=== PATIENT | female | born 1960 | race Caucasian/White ===

== ENCOUNTER 2016-08-10 16:18 | Emergency (ER) | payer MEDICARE, MEDICAID ==
[2016-08-10 16:26] VITALS: TEMP 97.6; BMI 27.6
--- NOTE | 2016-08-10 17:01 | DIRPT ---
CLINICAL DATA: Chest congestion, productive cough, chills and body aches for the past 3 days, history of COPD, current smoker. EXAM: CHEST 2 VIEW COMPARISON: PA and lateral chest x-ray of March 10, 2016 FINDINGS: The lungs remain hyperinflated. There is no focal infiltrate. There is no pleural effusion. The heart and pulmonary vascularity are normal. The mediastinum is normal in width. There is no pleural effusion. The observed bony thorax is unremarkable. IMPRESSION: COPD. There is no pneumonia, CHF, nor other acute cardiopulmonary abnormality. Electronically Signed By: Sammy Shi M.D. On: 08/10/2016 16:58
--- NOTE | 2016-08-10 18:30 | EDPRACDOC ---
- General Information Chief Complaint: Flu-Like Symptoms Stated Complaint: CHEST CONGESTION/ PNA? Time Seen by Provider: 08/10/16 18:19 Information Source: Patient Home Medications: Home Medications Alprazolam 0.5 mg PO TID PRN 07/13/13 Amlodipine [Norvasc] 10 mg PO DAILY 07/13/13 Atenolol [Tenormin] 100 mg PO DAILY 07/13/13 Dexlansoprazole [Dexilant] 60 mg PO DAILY 07/13/13 Fenofibrate,Micronized [Fenofibrate] 200 mg PO DAILY 07/13/13 Fluticasone/Salmeterol [Advair 250-50 Diskus] 1 puff INH BID 07/13/13 Levothyroxine Sodium 50 mcg PO DAILY 07/13/13 Lisinopril 40 mg PO DAILY 07/13/13 Meloxicam 7.5 mg PO DAILY 07/13/13 Perphenazine 4 mg PO BID 07/13/13 Perphenazine 12 mg PO HS 07/13/13 Trazodone HCl 200 mg PO QHS 07/13/13 Venlafaxine HCl ER [Effexor Xr] 150 mg PO DAILY 07/13/13 Rivaroxaban [Xarelto] 20 mg PO DAILY 06/27/14 Cyclobenzaprine HCl [Flexeril] 10 mg PO TID PRN #15 tablet 04/30/16 Montelukast Sodium [Singulair] 10 mg PO DAILY 04/30/16 Nitrofurantoin [Macrobid] 100 mg PO BID #14 cap 04/30/16 Oxycodone HCl/Acetaminophen [Percocet 5-325 mg Tablet] 1 tab PO Q6H PRN #20 tab 04/30/16 Alprazolam 2 mg PO TID #30 tab 05/01/16 Oxycodone HCl [Oxycodone Immediate Release] 10 mg PO Q6H PRN #30 tab 05/01/16 Azithromycin [Zithromax] 250 mg PO DAILY #6 tablet 08/10/16 Prednisone [Deltasone, Orasone] 20 mg PO DAILY #20 tab 08/10/16 Promethazine Dextromethorphan [Phenergan DM] 5 ml PO Q4H PRN #120 ml 08/10/16 Allergies/Adverse Reactions: Allergies Allergy/AdvReac Type Severity Reaction Status Date / Time diphenhydramine Allergy Anxiety Verified 08/10/16 16:26 [Diphenhydramine] Iodinated Contrast Media - Allergy Hives* Verified 08/10/16 16:26 IV Dye - History of Present Illness Onset: 3 days, worsening HPI: Pt c/o congestion, cough, fever 103, chills, sore throat, nausea, sob. Denies earache, abd pain, changes in bowel or bladder, leg swelling, rash. Current Symptoms: Reports: Cough, Fever, Nasal Symptoms, Sore Throat, Nausea Shortness of Breath: Mild Cough: Reports: Productive, Yellow Rhinorrhea: Reports: Clear Ear Symptoms: Reports: None Fever Severity/Quality: Reports: greater than 102 F Oral Intake: Normal Urinary Output: Normal Relevant History of: COPD Associated Signs & Symptoms:: Reports: Cough, Fever, Nasal Symptoms, Sore Throat , Nausea ED Past Medical History - History Reviewed Yes Nurses notes reviewed and agree except as marked - Patient Medical History Cardiac History: Reports: Hypertension, Hypercholesterolemia Respiratory History: Reports: COPD, Emphysema, Pulmonary Embolism GI/ History: Reports: Gastroesophageal Reflux Psychological History: Reports: Schizophrenia, Bipolar Disorder. Denies: Depression Surgical History: Reports: Appendectomy, Hernia Surgery - Family Medical History Reports: Hypertension, Stroke (MOTHERS SIDE), Cardiac Disorders (PARENTS). Denies: Diabetes, Cancer - Social Medical History Smoking Status: Heavy tobacco smoker (5 or more cigarettes/day or daily pipe/ cigar) ETOH: None Substance Abuse: None EDM Review of Systems - Review of Systems Constitutional: Chills, Fever Ears: No Symptoms Reported. negative: Pain, Hearing Loss, Drainage, Ear Pulling Throat: Pain Nose: Congestion Mouth: No Symptoms Reported. negative: Pain, Drooling Respiratory: Cough, Shortness of Breath, Wheezing Cardiovascular: No Symptoms Reported. negative: Chest Pain, Palpitations, Syncope, Edema, Orthopnea, PND, Skin Mottling, Cyanosis Gastrointestinal: Nausea Genitourinary: No Symptoms Reported. negative: Dysuria, Hematuria, Frequency, Discharge, Bleeding, Testicular Pain, Neurological: No Symptoms Reported. negative: Headache, Dizziness, Seizure, Numbness, Weakness, Speech Difficulty, Gait Difficulty Musculoskeletal: No Symptoms Reported. negative: Neck, Chestwall, Ribs, Back, Shoulder, Arm, Elbow, Forearm, Wrist, Hand, Pelvis, Hip, Femur, Knee, Leg, Ankle , Foot Integumentary: No Symptoms Reported. negative: Itching, Rash, Bruising, Wound Allergic/Immunologic: No Symptoms Reported. negative: Hives, Itching Hematologic: No Symptoms Reported. negative: Lymphadenopathy, Easy Bruising, Easy Bleeding Psychiatric: No Symptoms Reported. negative: Anxiety, Depression, Hallucinations, Insomnia, Suicidal - Physical Exam Constitutional: Alert Oriented to: Time, Person, Place Last recorded Vital Signs: Last Vital Signs Temp 97.6 F 08/10/16 16:25 Pulse 87 08/10/16 16:25 Resp 20 08/10/16 16:25 BP 137/92 08/10/16 16:25 Pulse Ox 92 08/10/16 16:25 Oxygen Pulse Oxygen Saturation 92 O2 Device Room Air Oxygen Flow Rate Fraction of Inspired Oxygen ( FIO2) - HEENT Head: Normal ( normocephalic) Eye Exam: Normal (PERRL, EOMI, Sclera white) Oropharynx: Normal (Pharynx:Moist without exudate,Gums-no swelling) Tympanic Membrane: Normal ENT EAC: Normal TMJ: Normal Nose: Congestion Neck: Normal (FROM, trachea at midline) - Respiratory/Cardiovascular Respiratory: Rales Cardiovascular: Normal (RRR without murmur, gallop or rub) - GI Auscultation: Normal (NABS) Palpation: Normal (Soft,No rebound or guarding, non distended) Tenderness: Non tender - Musculoskeletal Back: Normal (Non-Tender) Extremities: Normal (Normal tone, Pulses 2+ No cyanosis or edema, FROM) - Integumentary Skin: Normal, Warm, Dry Lymphatics: Normal (no adenopathy) - Neurologic Memory Impaired: Normal Motor Function: Normal (Normal tone, Pulses 2+ No cyanosis or edema, FROM) Mood Description: Normal Perception: Normal - Differential Diagnosis Bronchitis, Pneumonia, URI - Diagnostic Imaging Chest Image interpreted by: Radiologist IMPRESSION: COPD. There is no pneumonia, CHF, nor other acute cardiopulmonary abnormality. Decision Time to Discharge: 18:30 - Departure Disposition: Home Condition: Good Final Diagnosis: Acute bronchitis, Acute upper respiratory infection Instructions: Acute Bronchitis (ED), Upper Respiratory Infection (ED) Education/Counseling Given To: Patient Education/Counseling Given Regarding: Diagnosis, Treatment, Follow Up Referrals: Janet Marshall MD [Primary Care Provider] - One Week Prescriptions: Azithromycin [Zithromax] 250 mg PO DAILY #6 tablet Prednisone [Deltasone, Orasone] 20 mg PO DAILY #20 tab Promethazine Dextromethorphan [Phenergan DM] 5 ml PO Q4H PRN #120 ml PRN Reason: Cough Additional Instructions: Return for worse or different symptoms.
[2016-08-10 18:55] VITALS: BP 132/77; PULSE 88
== END 2016-08-10 18:52 | disposition home or self-care (01) ==
LOC: ED 16:18 → EDMC 18:52
DX: J44.1 Chronic obstructive pulmonary disease with (acute) exacerbation (principal); J06.9 Acute upper respiratory infection, unspecified; I10 Essential (primary) hypertension; E78.00 Pure hypercholesterolemia, unspecified; K21.9 Gastro-esophageal reflux disease without esophagitis; F17.200 Nicotine dependence, unspecified, uncomplicated; Z79.899 Other long term (current) drug therapy
CPT/HCPCS: 71020; 99283